=== PATIENT | female | born 1945 | race Caucasian/White ===

== ENCOUNTER → 2020-06-08 06:56 | Outpatient (CLI) | payer MEDICARE, OTHER, SELFPAY ==
[2020-06-08 19:12] LABS: SARS-CoV-2 RNA PCR Negative
== END ==
PROVIDERS: PCP Pain Medicine Pain Medicine; Visit Provider Pain Medicine Pain Medicine
DX: Z20.822 Contact with and (suspected) exposure to COVID-19 (principal)
CPT/HCPCS: C9803; U0003; U0005